=== PATIENT | male | born 1940 | race Caucasian/White ===

== ENCOUNTER 2019-08-20 11:38 | Emergency (ER) | payer MEDICARE, OTHER ==
[~2019-08-20] VITALS: Ht 175.3 cm; Wt 88.6 kg
[~2019-08-20 11:38] MED LIST: AFRIN NS; ASPI-1071 PO; ATOR40TA PO; HYDR-4383 PO; HYT1T PO; [UNRECOGNIZED DRUG - CODE] PO
[2019-08-20 12:42] VITALS: BP 149/64
[2019-08-20] MEDS ORDERED: HYDR-3965 PO (13:17)
== END 2019-08-20 13:50 | disposition home or self-care (01) ==
LOC: ER 11:39
DX: M71.22 Synovial cyst of popliteal space [Baker], left knee (principal); I25.10 Atherosclerotic heart disease of native coronary artery without angina pectoris; I50.9 Heart failure, unspecified; I25.2 Old myocardial infarction; G89.29 Other chronic pain; Z79.899 Other long term (current) drug therapy; Z79.82 Long term (current) use of aspirin; Z86.73 Personal history of transient ischemic attack (TIA), and cerebral infarction without residual deficits; Z86.718 Personal history of other venous thrombosis and embolism; Z95.5 Presence of coronary angioplasty implant and graft; Z95.1 Presence of aortocoronary bypass graft; Z87.01 Personal history of pneumonia (recurrent)
CPT/HCPCS: 73564; 93971; 99284

== ENCOUNTER 2020-01-18 08:53 | Day surgery (SDC) | payer OTHER ==
[2020-01-17 11:14] LABS: BASOPHILS % (AUTO) 0.5 % (0-1); EOSINOPHILS # (AUTO) 0.4 X10'3 (0-0.9); EOSINOPHILS % (AUTO) 6.6 % (0-6); HEMATOCRIT 43.7 % (42.0-52.0); HEMOGLOBIN 14.5 g/dl (14.0-17.9); LYMPHOCYTES # (AUTO) 1.9 X10'3 (1.1-4.8); LYMPHOCYTES % (AUTO) 32.6 % (21-51); MEAN CORPUSCULAR HEMOGLOBIN 31.8 PG (27.0-31.0); MEAN CORPUSCULAR HGB CONC 33.2 g/dL (33.0-36.5); MEAN CORPUSCULAR VOLUME 95.7 FL (78-98); MEAN PLATELET VOLUME 9.9 FL (7.4-10.4); MONOCYTES # (AUTO) 0.7 X10'3 (0-0.9); MONOCYTES % (AUTO) 12.8 % (2-12); NEUTROPHILS # (AUTO) 2.8 X10'3 (1.8-7.7); NEUTROPHILS % (AUTO) 47.5 % (42-75); PLATELET COUNT 150 X10'3 (140-440); RED BLOOD COUNT 4.56 X10'6 (4.70-6.10); RED CELL DISTRIBUTION WIDTH 13.7 % (11.5-14.5); WHITE BLOOD COUNT 5.8 X10'3 (4.5-11.0)
[2020-01-17 11:22] LABS: ANION GAP 7 (8-16); BLOOD UREA NITROGEN 10 MG/DL (7-18); CALCIUM 9.3 MG/DL (8.5-10.1); CHLORIDE 108 MMOL/L (99-107); CREATININE 1.11 MG/DL (0.60-1.10); GLUCOSE 111 MG/DL (70-104); POTASSIUM 3.9 MMOL/L (3.5-5.1); SODIUM 145 MMOL/L (135-145); eGFR 64 ML/MIN
[2020-01-17 11:33] LABS: PARTIAL THROMBOPLASTIN TIME 29 SECONDS (22-32)
[~2020-01-18] VITALS: Ht 182.9 cm; Wt 91.4 kg
[2020-01-18] VITALS (13 sets, daily range): BP systolic 110–149; BP diastolic 60–86
[2020-01-18] MEDS ORDERED: diphenhydrAMINE 25mg capsule PO PRN (09:15)
[2020-01-18] MEDS ORDERED: normal saline 1,000 ML IV SCH (09:15)
[2020-01-18] MEDS ORDERED: LORazepam 0.5 MG tablet PO PRN (09:15)
[2020-01-18] MEDS ORDERED: TERA10CA4 PO (09:21)
--- NOTE | 2020-01-18 10:00 | NUR ---
Dr. Casey at bedside. wants to attempt left wrist approach. Per MD request will DC 18g IV to left FA and place IV to RFA.
[2020-01-18] MEDS ORDERED: LIDOcaine/PRILOcaine 5gm cream TP ONE (10:25)
[2020-01-18] MEDS ORDERED: fentaNYL/PF 50MCG/1 ML 2ML syringe ONE (12:05)
[2020-01-18] MEDS ORDERED: LIDOcaine 1% (10mg/ml)w/preservative injection 20ml MDV ONE (12:05)
[2020-01-18] MEDS ORDERED: midazolam 2 mg/2 ml injection ONE (12:05)
[2020-01-18] MEDS ORDERED: iohexol 350 MG/ML 50ML vial IV ONE ×2 (12:05→13:21)
[2020-01-18] MEDS ORDERED: iohexol 350MG/ML 100ml bottle IV ONE ×2 (12:06→13:03)
[2020-01-18] MEDS ORDERED: verapamil 2.5 mg/ml inj IV ONE (12:24)
[2020-01-18] MEDS ORDERED: heparin 1,000unit/ml 10ml vial 10 ML ONE (12:24)
[2020-01-18] MEDS ORDERED: nitroGLYCERIN-Tridil 50MG/D5W 250 ML IV ONE (12:24)
== END 2020-01-18 19:00 | disposition home or self-care (01) ==
LOC: SSTAY O 08:53
PROVIDERS: ATTEND Internal Medicine Cardiovascular Disease
DX: R94.39 Abnormal result of other cardiovascular function study (principal); I25.10 Atherosclerotic heart disease of native coronary artery without angina pectoris; E78.49 Other hyperlipidemia; I10 Essential (primary) hypertension; I25.2 Old myocardial infarction; N40.0 Benign prostatic hyperplasia without lower urinary tract symptoms; Z95.5 Presence of coronary angioplasty implant and graft; Z79.01 Long term (current) use of anticoagulants; Z79.899 Other long term (current) drug therapy; Z79.82 Long term (current) use of aspirin
CPT/HCPCS: 36415; 80048; 85025; 85610; 85730; 93005; 93459; 93567; 99152; 99153; C1760; C1769; C1894; J1644; J2001; J2250; J3010; J7030; Q0163; Q9967; A4620; J3490

== ENCOUNTER 2022-02-13 10:57 | Observation (INO) | payer OTHER ==
[~2022-02-13] VITALS: Ht 177.8 cm; Wt 86.4 kg
[~2022-02-13 10:57] MED LIST changes: -AFRIN NS; -HYDR-4383 PO; -HYT1T PO; +TERA10CA4 PO; -[UNRECOGNIZED DRUG - CODE] PO
[2022-02-13 11:29] LABS: BASOPHILS % (AUTO) 0.3 % (0-1); EOSINOPHILS # (AUTO) 0.3 X10'3 (0-0.9); EOSINOPHILS % (AUTO) 3.9 % (0-6); HEMATOCRIT 38.6 % (42.0-52.0); HEMOGLOBIN 12.6 g/dl (14.0-17.9); LYMPHOCYTES # (AUTO) 1.9 X10'3 (1.1-4.8); LYMPHOCYTES % (AUTO) 30.4 % (21-51); MEAN CORPUSCULAR HEMOGLOBIN 31.6 PG (27.0-31.0); MEAN CORPUSCULAR HGB CONC 32.7 g/dL (33.0-36.5); MEAN CORPUSCULAR VOLUME 96.7 FL (78-98); MEAN PLATELET VOLUME 10.1 FL (7.4-10.4); MONOCYTES # (AUTO) 0.8 X10'3 (0-0.9); MONOCYTES % (AUTO) 12.4 % (2-12); NEUTROPHILS # (AUTO) 3.4 X10'3 (1.8-7.7); PLATELET COUNT 117 X10'3 (140-440); RED BLOOD COUNT 3.99 X10'6 (4.70-6.10); RED CELL DISTRIBUTION WIDTH 13.3 % (11.5-14.5); WHITE BLOOD COUNT 6.4 X10'3 (4.5-11.0)
[2022-02-13 11:45] LABS: ALANINE AMINOTRANSFERASE 39 U/L (12-78); ALBUMIN 3.7 G/DL (3.4-5.0); ALBUMIN/GLOBULIN RATIO 1.3 (1.1-1.5); ALKALINE PHOSPHATASE 61 IU/L (46-116); ANION GAP 9 (8-16); ASPARTATE AMINO TRANSFERASE 26 U/L (10-37); BILIRUBIN,TOTAL 0.8 MG/DL (0.1-1.0); BLOOD UREA NITROGEN 13 MG/DL (7-18); BUN/CREATININE RATIO 12.4 (5.4-32.0); CHLORIDE 112 MMOL/L (99-107); CREATININE 1.05 MG/DL (0.60-1.10); GLUCOSE 129 MG/DL (70-104); POTASSIUM 3.8 MMOL/L (3.5-5.1); SODIUM 146 MMOL/L (135-145); TOTAL CARBON DIOXIDE 24.8 MMOL/L (24-32); TOTAL PROTEIN 6.6 G/DL (6.4-8.2); eGFR 67 ML/MIN
[2022-02-13] MEDS ORDERED: MYC15CR TOP (17:04)
[2022-02-13] MEDS ORDERED: FLUC100T64 PO (17:04)
[2022-02-13] MEDS ORDERED: APIX5TAB3 PO (17:04)
[2022-02-13] MEDS ORDERED: potassium CL 10mEq/100ml bag 100 ML IV PRN (19:30)
[2022-02-13] MEDS ORDERED: magnesium 4gm in 100ml NS 100 ML IV PRN (19:30)
[2022-02-13] MEDS ORDERED: ondansetron/PF 4mg/2ml inj IV PRN (19:30)
[2022-02-13] MEDS ORDERED: acetaminophen 325mg tablet PO PRN (19:30)
[2022-02-13] MEDS ORDERED: magnesium 2GM in 50ml NS 50 ML IV PRN (19:30)
[2022-02-13] MEDS ORDERED: potassium Cl 20 mEq SR tablet PO PRN ×2 (19:30)
[2022-02-13] MEDS ORDERED: magnesium Cl slow-release 64mg tablet PO PRN (19:30)
[2022-02-13] MEDS: amiodarone 200mg tablet PO SCH (19:44)
[2022-02-13] MEDS: normal saline 1000ml 1,000 ML IV SCH (19:57)
[2022-02-13] MEDS: K and/or MAG REPLACEMENT MC SCH (20:01)
[2022-02-13 23:14] LABS: MAGNESIUM 2.1 MG/DL (1.5-2.4)
[2022-02-14] VITALS (16 sets, daily range): BP systolic 98–149; BP diastolic 63–100
[2022-02-14] MEDS: normal saline 1000ml 1,000 ML IV SCH (01:34)
[2022-02-14] MEDS: amiodarone 200mg tablet PO SCH ×2 (07:55→20:37)
[2022-02-14 07:56] LABS: BASOPHILS % (AUTO) 0.4 % (0-1); EOSINOPHILS # (AUTO) 0.3 X10'3 (0-0.9); EOSINOPHILS % (AUTO) 4.9 % (0-6); HEMATOCRIT 38.7 % (42.0-52.0); HEMOGLOBIN 12.8 g/dl (14.0-17.9); LYMPHOCYTES # (AUTO) 1.5 X10'3 (1.1-4.8); LYMPHOCYTES % (AUTO) 25.6 % (21-51); MEAN CORPUSCULAR HEMOGLOBIN 31.7 PG (27.0-31.0); MEAN CORPUSCULAR VOLUME 96.2 FL (78-98); MEAN PLATELET VOLUME 9.5 FL (7.4-10.4); MONOCYTES # (AUTO) 0.7 X10'3 (0-0.9); MONOCYTES % (AUTO) 12.7 % (2-12); NEUTROPHILS # (AUTO) 3.3 X10'3 (1.8-7.7); NEUTROPHILS % (AUTO) 56.4 % (42-75); PLATELET COUNT 112 X10'3 (140-440); RED BLOOD COUNT 4.03 X10'6 (4.70-6.10); RED CELL DISTRIBUTION WIDTH 13.6 % (11.5-14.5); WHITE BLOOD COUNT 5.9 X10'3 (4.5-11.0)
[2022-02-14] MEDS: K and/or MAG REPLACEMENT MC SCH ×2 (08:00→20:00)
[2022-02-14 08:11] LABS: ALBUMIN 3.6 G/DL (3.4-5.0); ANION GAP 11 (8-16); BLOOD UREA NITROGEN 13 MG/DL (7-18); BUN/CREATININE RATIO 12.9 (5.4-32.0); CALCIUM 9.2 MG/DL (8.5-10.1); CHLORIDE 108 MMOL/L (99-107); CREATININE 1.01 MG/DL (0.60-1.10); GLUCOSE 106 MG/DL (70-104); MAGNESIUM 1.9 MG/DL (1.5-2.4); POTASSIUM 3.8 MMOL/L (3.5-5.1); SODIUM 144 MMOL/L (135-145); TOTAL CARBON DIOXIDE 24.6 MMOL/L (24-32); eGFR 70 ML/MIN
[2022-02-14] MEDS ORDERED: MIDAZolam 1 MG/ML 5ML VIAL IV ONE (09:20)
[2022-02-14] MEDS ORDERED: morphine 10mg/ml inj. IV ONE (09:20)
--- NOTE | 2022-02-14 09:45 | NUR ---
assisting primary nurse, Gasper, with procedural sedation for cardioversion, pt is resting quietly on bed, GCS 15 alert and oriented x3, resp even and unlabored, skin p/w/d, IV to rt hand is patent and clear. Pt aware of plan of care, no questions
[2022-02-14] MEDS ORDERED: MIDAZolam 5mg/ml 2ml vial IV ONE (10:00)
--- NOTE | 2022-02-14 10:15 | NUR ---
PT HAD A NORY AND CARDIOVERSION IN THE ROOM WITH DR MANJARREZ, THE JOHN RN MANAGED THE PT, INCLUDING MEDS AND VITALS. 1134 THE PT IS NOW IN NSR. AWAKE AND STABLE.
[2022-02-14] MEDS ORDERED: furosemide 40mg/4ml inj IV ONE (10:40)
[2022-02-14] MEDS: carvedilol 6.25mg tablet PO SCH ×2 (11:15→20:37)
--- NOTE | 2022-02-14 12:55 | NUR ---
VERSED AND MORPHINE GIVEN IN PROCEDURE BY JOHN CHAWLA.
[2022-02-14] MEDS ORDERED: ondansetron 4mg rapidly disintigrating tab PO PRN (16:00)
[2022-02-14] MEDS: apixaban 5mg tablet PO SCH (20:37)
[2022-02-15 02:00] VITALS: BP 127/73
[2022-02-15 06:00] VITALS: BP 133/77
[2022-02-15 06:58] LABS: HEMOGLOBIN 12.5 g/dl (14.0-17.9); LYMPHOCYTES # (AUTO) 1.4 X10'3 (1.1-4.8); MONOCYTES # (AUTO) 0.8 X10'3 (0-0.9); WHITE BLOOD COUNT 6.1 X10'3 (4.5-11.0)
[2022-02-15 07:03] LABS: BASOPHILS % (AUTO) 0.3 % (0-1); EOSINOPHILS # (AUTO) 0.3 X10'3 (0-0.9); EOSINOPHILS % (AUTO) 4.2 % (0-6); HEMATOCRIT 37.5 % (42.0-52.0); MEAN CORPUSCULAR HEMOGLOBIN 32.3 PG (27.0-31.0); MEAN CORPUSCULAR HGB CONC 33.5 g/dL (33.0-36.5); MEAN CORPUSCULAR VOLUME 96.6 FL (78-98); MEAN PLATELET VOLUME 9.7 FL (7.4-10.4); NEUTROPHILS # (AUTO) 3.6 X10'3 (1.8-7.7); NEUTROPHILS % (AUTO) 59.5 % (42-75); PLATELET COUNT 104 X10'3 (140-440); RED BLOOD COUNT 3.88 X10'6 (4.70-6.10); RED CELL DISTRIBUTION WIDTH 13.4 % (11.5-14.5)
[2022-02-15 07:30] LABS: ALBUMIN 3.6 G/DL (3.4-5.0); ANION GAP 9 (8-16); BLOOD UREA NITROGEN 17 MG/DL (7-18); BUN/CREATININE RATIO 16.2 (5.4-32.0); CALCIUM 8.8 MG/DL (8.5-10.1); CHLORIDE 108 MMOL/L (99-107); CREATININE 1.05 MG/DL (0.60-1.10); GLUCOSE 107 MG/DL (70-104); MAGNESIUM 1.9 MG/DL (1.5-2.4); SODIUM 142 MMOL/L (135-145); TOTAL CARBON DIOXIDE 25.3 MMOL/L (24-32); eGFR 67 ML/MIN
[2022-02-15] MEDS: K and/or MAG REPLACEMENT MC SCH (08:00)
[2022-02-15] MEDS: amiodarone 200mg tablet PO SCH (08:03)
[2022-02-15] MEDS: carvedilol 6.25mg tablet PO SCH (08:03)
[2022-02-15] MEDS: apixaban 5mg tablet PO SCH (08:03)
[2022-02-15 10:44] VITALS: BP 115/69
[2022-02-15] MEDS ORDERED: AMIO400T5 PO (18:53)
[2022-02-15] MEDS ORDERED: AMIO200T67 PO ×4 (18:54→18:57)
[2022-02-15] MEDS ORDERED: CARV-49 PO (18:57)
[2022-02-15] MEDS ORDERED: APIX5TAB3 PO (18:57)
[2022-02-20] MEDS ORDERED: amiodarone 200mg tablet PO SCH (20:00)
[2022-02-28] MEDS ORDERED: amiodarone 200mg tablet PO SCH (08:00)
== END 2022-02-15 12:53 | disposition home or self-care (01) ==
LOC: ER 10:58 → ED HOLD 19:33 → PCU 3S 23:27
PROVIDERS: ADMIT Internal Medicine; ATTEND Internal Medicine
DX: I48.20 Chronic atrial fibrillation, unspecified (principal); Z20.822 Contact with and (suspected) exposure to COVID-19; I25.10 Atherosclerotic heart disease of native coronary artery without angina pectoris; I21.A1 Myocardial infarction type 2; E78.5 Hyperlipidemia, unspecified; I11.0 Hypertensive heart disease with heart failure; I50.9 Heart failure, unspecified; I25.89 Other forms of chronic ischemic heart disease; N40.0 Benign prostatic hyperplasia without lower urinary tract symptoms; E66.3 Overweight; I25.2 Old myocardial infarction; Z79.82 Long term (current) use of aspirin; Z86.73 Personal history of transient ischemic attack (TIA), and cerebral infarction without residual deficits; Z79.01 Long term (current) use of anticoagulants; Z87.891 Personal history of nicotine dependence; Z95.1 Presence of aortocoronary bypass graft; Z79.899 Other long term (current) drug therapy
CPT/HCPCS: 36415; 71045; 80048; 80053; 83735; 83880; 84132; 84484; 85025; 87081; 87635; 93005; 93312; 93320; 94799; 96374; 99285; C9803; G0378; J1940; J7030

== ENCOUNTER 2022-02-20 10:04 | Emergency (ER) | payer OTHER ==
[~2022-02-20] VITALS: Ht 177.8 cm; Wt 87.7 kg
[~2022-02-20 10:04] MED LIST changes: +AMIO200T67 PO; +AMIO400T5 PO; +APIX5TAB3 PO; +CARV-49 PO; +FLUC100T64 PO; +MYC15CR TOP
[2022-02-20 11:04] LABS: EOSINOPHILS # (AUTO) 0.2 X10'3 (0-0.9); EOSINOPHILS % (AUTO) 3.3 % (0-6); HEMOGLOBIN 12.8 g/dl (14.0-17.9); LYMPHOCYTES # (AUTO) 1.4 X10'3 (1.1-4.8); MONOCYTES # (AUTO) 0.9 X10'3 (0-0.9); RED CELL DISTRIBUTION WIDTH 13.7 % (11.5-14.5)
[2022-02-20 11:06] LABS: BASOPHILS % (AUTO) 0.4 % (0-1); HEMATOCRIT 38.4 % (42.0-52.0); LYMPHOCYTES % (AUTO) 22.4 % (21-51); MEAN CORPUSCULAR HEMOGLOBIN 31.9 PG (27.0-31.0); MEAN CORPUSCULAR HGB CONC 33.3 g/dL (33.0-36.5); MEAN CORPUSCULAR VOLUME 95.8 FL (78-98); MEAN PLATELET VOLUME 9.4 FL (7.4-10.4); MONOCYTES % (AUTO) 13.9 % (2-12); NEUTROPHILS # (AUTO) 3.9 X10'3 (1.8-7.7); PLATELET COUNT 106 X10'3 (140-440); RED BLOOD COUNT 4.01 X10'6 (4.70-6.10); WHITE BLOOD COUNT 6.4 X10'3 (4.5-11.0)
[2022-02-20 11:18] LABS: ALANINE AMINOTRANSFERASE 66 U/L (12-78); ALBUMIN 3.5 G/DL (3.4-5.0); ALBUMIN/GLOBULIN RATIO 1.2 (1.1-1.5); ALKALINE PHOSPHATASE 66 IU/L (46-116); ANION GAP 8 (8-16); ASPARTATE AMINO TRANSFERASE 39 U/L (10-37); BILIRUBIN,TOTAL 0.5 MG/DL (0.1-1.0); BLOOD UREA NITROGEN 22 MG/DL (7-18); BUN/CREATININE RATIO 18.2 (5.4-32.0); CALCIUM 8.8 MG/DL (8.5-10.1); CHLORIDE 112 MMOL/L (99-107); CREATININE 1.21 MG/DL (0.60-1.10); GLUCOSE 108 MG/DL (70-104); POTASSIUM 4.4 MMOL/L (3.5-5.1); SODIUM 145 MMOL/L (135-145); TOTAL CARBON DIOXIDE 25.3 MMOL/L (24-32); TOTAL PROTEIN 6.4 G/DL (6.4-8.2); eGFR 57 ML/MIN
[2022-02-20 13:55] VITALS: BP 146/75
== END 2022-02-20 13:58 | disposition home or self-care (01) ==
LOC: ER 10:04
DX: R06.02 Shortness of breath (principal); R07.89 Other chest pain; G47.30 Sleep apnea, unspecified; I25.10 Atherosclerotic heart disease of native coronary artery without angina pectoris; I50.9 Heart failure, unspecified; I25.2 Old myocardial infarction; G89.29 Other chronic pain; Z86.73 Personal history of transient ischemic attack (TIA), and cerebral infarction without residual deficits; Z87.01 Personal history of pneumonia (recurrent); Z95.5 Presence of coronary angioplasty implant and graft; Z72.89 Other problems related to lifestyle; Z79.899 Other long term (current) drug therapy; Z79.82 Long term (current) use of aspirin
CPT/HCPCS: 36415; 71045; 80053; 83880; 84484; 85025; 93005; 99285

== ENCOUNTER 2022-04-19 10:00 | Emergency (ER) | payer MEDICARE, OTHER ==
[~2022-04-19] VITALS: Ht 177.8 cm; Wt 82.7 kg
[~2022-04-19 10:00] MED LIST changes: -CARV-49 PO
[2022-04-19 10:34] VITALS: BP 128/69
[2022-04-19] MEDS ORDERED: proparacaine 0.5% ophthalmic drops 15ml EACHEYE ONE (12:25)
[2022-04-19] MEDS ORDERED: POLOS LEFTEYE (12:59)
== END 2022-04-19 13:10 | disposition home or self-care (01) ==
LOC: ER 10:00
DX: S05.02XA Injury of conjunctiva and corneal abrasion without foreign body, left eye, initial encounter (principal); I25.10 Atherosclerotic heart disease of native coronary artery without angina pectoris; I50.9 Heart failure, unspecified; I25.2 Old myocardial infarction; G89.29 Other chronic pain; Z86.73 Personal history of transient ischemic attack (TIA), and cerebral infarction without residual deficits; Z87.01 Personal history of pneumonia (recurrent); Z95.5 Presence of coronary angioplasty implant and graft; Z72.89 Other problems related to lifestyle; Z79.82 Long term (current) use of aspirin; Z79.899 Other long term (current) drug therapy; Z79.2 Long term (current) use of antibiotics; X58.XXXA Exposure to other specified factors, initial encounter; Y93.89 Activity, other specified; Y92.89 Other specified places as the place of occurrence of the external cause; Y99.8 Other external cause status
CPT/HCPCS: 99283

== ENCOUNTER 2022-05-07 06:07 | Day surgery (SDC) | payer OTHER ==
[2022-05-06 10:37] LABS: BASOPHILS % (AUTO) 0.4 % (0-1); EOSINOPHILS # (AUTO) 0.3 X10'3 (0-0.9); HEMATOCRIT 40.8 % (42.0-52.0); LYMPHOCYTES # (AUTO) 1.7 X10'3 (1.1-4.8); MONOCYTES # (AUTO) 0.6 X10'3 (0-0.9); PLATELET COUNT 120 X10'3 (140-440); WHITE BLOOD COUNT 5.3 X10'3 (4.5-11.0)
[2022-05-06 10:39] LABS: EOSINOPHILS % (AUTO) 5.3 % (0-6); HEMOGLOBIN 13.6 g/dl (14.0-17.9); LYMPHOCYTES % (AUTO) 32.7 % (21-51); MEAN CORPUSCULAR HEMOGLOBIN 31.6 PG (27.0-31.0); MEAN CORPUSCULAR HGB CONC 33.4 g/dL (33.0-36.5); MEAN CORPUSCULAR VOLUME 94.6 FL (78-98); MONOCYTES % (AUTO) 11.5 % (2-12); NEUTROPHILS # (AUTO) 2.7 X10'3 (1.8-7.7); NEUTROPHILS % (AUTO) 50.1 % (42-75); RED BLOOD COUNT 4.31 X10'6 (4.70-6.10); RED CELL DISTRIBUTION WIDTH 15.3 % (11.5-14.5)
[2022-05-06 10:49] LABS: ALBUMIN 3.9 G/DL (3.4-5.0); ANION GAP 11 (8-16); APTT 29 SECONDS (22-32); BLOOD UREA NITROGEN 16 MG/DL (7-18); BUN/CREATININE RATIO 14.5 (5.4-32.0); CHLORIDE 109 MMOL/L (99-107); GLUCOSE 119 MG/DL (70-104); POTASSIUM 4.2 MMOL/L (3.5-5.1); SODIUM 147 MMOL/L (135-145); TOTAL CARBON DIOXIDE 27.2 MMOL/L (24-32); eGFR 64 ML/MIN
[2022-05-07] VITALS (16 sets, daily range): BP systolic 125–173; BP diastolic 56–95
[~2022-05-07] VITALS: Ht 177.8 cm; Wt 83.0 kg
[2022-05-07] MEDS: normal saline 1,000 ML IV SCH ×2 (06:30→07:15)
[2022-05-07] MEDS ORDERED: LIDOcaine/PRILOcaine 5gm cream TP ONE (06:30)
[2022-05-07] MEDS ORDERED: ASPI-1071 PO (06:38)
[2022-05-07] MEDS ORDERED: iohexol 350MG/ML 100ml bottle IV ONE ×2 (07:10→09:06)
[2022-05-07] MEDS ORDERED: verapamil 2.5 mg/ml inj IV ONE (07:10)
[2022-05-07] MEDS ORDERED: fentaNYL/PF 50MCG/1 ML 2ML syringe ONE (07:10)
[2022-05-07] MEDS ORDERED: heparin 1,000unit/ml 10ml vial 10 ML ONE (07:10)
[2022-05-07] MEDS ORDERED: midazolam 1 mg/ML 2ml injection ONE (07:10)
[2022-05-07] MEDS: LORazepam 0.5 MG tablet PO PRN ×2 (07:15→07:16)
[2022-05-07] MEDS: diphenhydrAMINE 25mg capsule PO PRN ×2 (07:15→07:16)
[2022-05-07] MEDS ORDERED: nitroGLYCERIN-Tridil 50MG/D5W 250 ML IV ONE (07:21)
[2022-05-07] MEDS ORDERED: LIDOcaine 1% W/epiNEPHrine 1:100,000 20ml vial ONE (08:15)
[2022-05-07] MEDS ORDERED: LIDOcaine 1% 30ml preserv. free vial ONE (08:15)
[2022-05-07] MEDS ORDERED: heparin 1,000 UNITS/NS 500ml 500 ML ONE ×2 (09:21→09:22)
== END 2022-05-07 15:05 | disposition home or self-care (01) ==
LOC: SSTAY O 06:07
PROVIDERS: ATTEND Internal Medicine Cardiovascular Disease
DX: R94.39 Abnormal result of other cardiovascular function study (principal); R53.83 Other fatigue; I25.10 Atherosclerotic heart disease of native coronary artery without angina pectoris; E11.9 Type 2 diabetes mellitus without complications; I25.2 Old myocardial infarction; I10 Essential (primary) hypertension; E66.3 Overweight; Z68.27 Body mass index [BMI] 27.0-27.9, adult; I48.0 Paroxysmal atrial fibrillation; E78.49 Other hyperlipidemia; N40.0 Benign prostatic hyperplasia without lower urinary tract symptoms; M19.90 Unspecified osteoarthritis, unspecified site; Z79.899 Other long term (current) drug therapy; Z79.82 Long term (current) use of aspirin; Z72.89 Other problems related to lifestyle; Z87.891 Personal history of nicotine dependence; Z95.1 Presence of aortocoronary bypass graft; Z95.5 Presence of coronary angioplasty implant and graft; Z80.42 Family history of malignant neoplasm of prostate; Z82.49 Family history of ischemic heart disease and other diseases of the circulatory system
CPT/HCPCS: 36415; 76937; 80048; 85025; 85610; 85730; 93005; 93459; 99152; 99153; C1760; C1769; C1894; J1644; J2250; J3010; J3490; J7030; Q0163; Q9967; A4620; A6258

== ENCOUNTER 2022-06-22 19:55 | Emergency (ER) | payer OTHER ==
[~2022-06-22 19:55] MED LIST changes: -AMIO200T67 PO; -AMIO400T5 PO; -FLUC100T64 PO; -MYC15CR TOP
== END 2022-06-22 23:51 | disposition left against medical advice (07) ==
LOC: ER 19:57
DX: R07.89 Other chest pain (principal); Z53.21 Procedure and treatment not carried out due to patient leaving prior to being seen by health care provider
CPT/HCPCS: 93005

== ENCOUNTER 2023-01-01 02:47 | Emergency (ER) | payer MEDICARE, OTHER ==
[~2023-01-01] VITALS: Ht 177.8 cm; Wt 85.0 kg
[2023-01-01 02:50] VITALS: BP 134/65
[2023-01-01 03:34] LABS: BASOPHILS % (AUTO) 0.3 % (0-1); EOSINOPHILS # (AUTO) 0.5 X10'3 (0-0.9); EOSINOPHILS % (AUTO) 7.7 % (0-6); HEMATOCRIT 39.3 % (42.0-52.0); HEMOGLOBIN 13.1 g/dl (14.0-17.9); LYMPHOCYTES % (AUTO) 31.8 % (21-51); MEAN CORPUSCULAR HGB CONC 33.2 g/dL (33.0-36.5); MEAN CORPUSCULAR VOLUME 96.3 FL (78-98); MEAN PLATELET VOLUME 9.9 FL (7.4-10.4); MONOCYTES # (AUTO) 0.8 X10'3 (0-0.9); MONOCYTES % (AUTO) 13.2 % (2-12); PLATELET COUNT 123 X10'3 (140-440); RED BLOOD COUNT 4.08 X10'6 (4.70-6.10); RED CELL DISTRIBUTION WIDTH 13.8 % (11.5-14.5); WHITE BLOOD COUNT 6.4 X10'3 (4.5-11.0)
[2023-01-01 03:48] LABS: ALANINE AMINOTRANSFERASE 23 U/L (12-78); ALBUMIN 3.9 G/DL (3.4-5.0); ALBUMIN/GLOBULIN RATIO 1.4 (1.1-1.5); ALKALINE PHOSPHATASE 65 IU/L (46-116); ANION GAP 9 (8-16); ASPARTATE AMINO TRANSFERASE 23 U/L (10-37); BILIRUBIN,TOTAL 0.4 MG/DL (0.1-1.0); BLOOD UREA NITROGEN 22 MG/DL (7-18); BUN/CREATININE RATIO 19.8 (5.4-32.0); CALCIUM 9.3 MG/DL (8.5-10.1); CHLORIDE 109 MMOL/L (99-107); CREATININE 1.11 MG/DL (0.60-1.10); GLUCOSE 136 MG/DL (70-104); POTASSIUM 4.2 MMOL/L (3.5-5.1); SODIUM 142 MMOL/L (135-145); TOTAL CARBON DIOXIDE 24.2 MMOL/L (24-32); TOTAL PROTEIN 6.6 G/DL (6.4-8.2); eGFR 63 ML/MIN
[2023-01-01] MEDS ORDERED: ketorolac tromethamine 15mg/ml inj. IM ONE (04:15)
[2023-01-01] MEDS ORDERED: TRAM50TA2 PO (04:35)
[2023-01-01 04:56] LABS: CLARITY,URINE CLEAR (Clear); COLOR,URINE YELLOW (Yellow); GLUCOSE, URINE NEGATIVE (Neg); KETONES,URINE NEGATIVE (Neg); LEUKOCYTE ESTERASE ,URINE NEGATIVE (Neg); NITRITES, URINE NEGATIVE (Neg); OCCULT BLOOD,URINE NEGATIVE (Neg); PH,URINE 5.5 (4.8-8.0); PROTEIN,URINE NEGATIVE (Neg); UROBILINOGEN,URINE 0.2 E.U/dL (0.2-1.0)
[2023-01-01 04:57] LABS: UA COLLECTION TYPE NON-SPECIFIED
== END 2023-01-01 05:19 | disposition home or self-care (01) ==
LOC: ER 02:48
DX: M54.50 Low back pain, unspecified (principal); R10.32 Left lower quadrant pain
CPT/HCPCS: 36415; 74176; 80053; 81003; 85025; 96372; 99285; J1885

== ENCOUNTER 2023-05-17 08:25 | Emergency (ER) | payer MEDICARE, OTHER ==
[~2023-05-17] VITALS: Ht 175.3 cm; Wt 84.1 kg
[2023-05-17 08:34] VITALS: BP 125/68
[2023-05-17] MEDS ORDERED: dexamethasone sod phosphate 10mg/ml inj PO STA (10:14)
[2023-05-17] MEDS ORDERED: azithromycin 250mg tablet PO ONE (10:15)
[2023-05-17] MEDS ORDERED: PRED20TA PO (10:17)
[2023-05-17] MEDS ORDERED: AZIT-164 PO (10:17)
== END 2023-05-17 10:49 | disposition home or self-care (01) ==
LOC: ER 08:26
DX: J18.9 Pneumonia, unspecified organism (principal); Z20.822 Contact with and (suspected) exposure to COVID-19; I50.9 Heart failure, unspecified
CPT/HCPCS: 71046; 87811; 99284; J1100

== ENCOUNTER 2023-12-07 19:13 | Emergency (ER) | payer MEDICARE, OTHER ==
[~2023-12-07] VITALS: Ht 175.3 cm; Wt 81.8 kg
[2023-12-07] MEDS ORDERED: triamcinolone acetonide 40mg/ml inj IM ONE (22:45)
[2023-12-07] MEDS ORDERED: acetaminophen 325mg tablet PO ONE (22:45)
[2023-12-07] MEDS ORDERED: ketorolac trometh inj. 60 MG/2 ML VIAL IM ONE (22:45)
[2023-12-07] MEDS ORDERED: ACET-1025 PO (23:03)
[2023-12-07 23:38] VITALS: BP 170/90; PULSE 76; RESP 16; TEMP 97.7; O2SAT 96
== END 2023-12-07 23:42 | disposition home or self-care (01) ==
LOC: ER 19:13
DX: M70.62 Trochanteric bursitis, left hip (principal); M19.90 Unspecified osteoarthritis, unspecified site; M79.605 Pain in left leg; I50.9 Heart failure, unspecified; Z79.82 Long term (current) use of aspirin; Z79.899 Other long term (current) drug therapy; Y93.89 Activity, other specified
CPT/HCPCS: 20552; 96372; 99284; J1885

== ENCOUNTER 2024-06-29 10:47 | Emergency (ER) | payer MEDICARE, OTHER ==
[~2024-06-29] VITALS: Ht 170.2 cm; Wt 83.5 kg
[2024-06-29 10:50] VITALS: TEMP 99.1
[2024-06-29] MEDS ORDERED: BENZ-38 PO (12:42)
[2024-06-29 12:50] VITALS: BP 144/84; PULSE 85; RESP 16; O2SAT 99
== END 2024-06-29 12:50 | disposition home or self-care (01) ==
LOC: ER 10:48
DX: R05.9 Cough, unspecified (principal); R50.9 Fever, unspecified; I25.10 Atherosclerotic heart disease of native coronary artery without angina pectoris; I25.2 Old myocardial infarction; I50.9 Heart failure, unspecified; Z86.73 Personal history of transient ischemic attack (TIA), and cerebral infarction without residual deficits; Z98.890 Other specified postprocedural states; Z79.899 Other long term (current) drug therapy; Z79.82 Long term (current) use of aspirin
CPT/HCPCS: 71045; 99283

== ENCOUNTER 2024-11-06 08:09 | Emergency (ER) | payer MEDICARE, OTHER ==
[~2024-11-06] VITALS: Ht 170.2 cm; Wt 75.0 kg
[2024-11-06 08:25] VITALS: BP 129/72; PULSE 70; RESP 16; O2SAT 97
[2024-11-06 09:50] VITALS: TEMP 97.2
== END 2024-11-06 09:51 | disposition home or self-care (01) ==
LOC: ER 08:10
DX: J06.9 Acute upper respiratory infection, unspecified (principal); I25.10 Atherosclerotic heart disease of native coronary artery without angina pectoris; I50.9 Heart failure, unspecified; I25.2 Old myocardial infarction; G89.29 Other chronic pain; M54.9 Dorsalgia, unspecified; Z86.73 Personal history of transient ischemic attack (TIA), and cerebral infarction without residual deficits; Z95.1 Presence of aortocoronary bypass graft; Z72.89 Other problems related to lifestyle; Z79.82 Long term (current) use of aspirin; Z79.899 Other long term (current) drug therapy
CPT/HCPCS: 99282